=== PATIENT | female | born 1960 | race Caucasian/White ===

== ENCOUNTER 2023-09-15 10:53 | Emergency (ER) | payer OTHER ==
[~2023-09-15] VITALS: Ht 147.3 cm; Wt 35.4 kg
[~2023-09-15 10:53] MED LIST: ALPR1 PO; Arava10 MG PO; BUTALB-ACETAMI1 EACH; CYCL10 PO; FAMO40 PO; FENT25TP TOP; Norco 5-325 Ta1 EACH PO; ONDA4 PO; OXYACE5T PO; PROM25 PO; Percocet 10-321 EACH PO; Percocet 5-3251 EACH PO; SUCR1 PO; XELJANZ5 MG PO
[2023-09-15] MEDS ORDERED: Acetaminophen650 M1 PO (11:03)
[2023-09-15] MEDS ORDERED: HYDSUL200 PO (11:03)
[2023-09-15] MEDS ORDERED: BISA10S PR (11:03)
[2023-09-15] MEDS ORDERED: LOPE2C PO (11:04)
[2023-09-15] MEDS ORDERED: METO25ER PO (11:04)
[2023-09-15] MEDS ORDERED: Acetaminophen 325 MG TABLET PO ONE (12:00)
[2023-09-15] MEDS ORDERED: Cyclobenzaprine HCl 10 MG Tab PO ONE (12:00)
[2023-09-15] MEDS ORDERED: CYCL10 PO (14:06)
[2023-09-15 14:15] VITALS: BP 121/69
== END 2023-09-15 15:00 | disposition home or self-care (01) ==
LOC: ER 10:53
DX: M54.42 Lumbago with sciatica, left side (principal); R53.81 Other malaise; F17.200 Nicotine dependence, unspecified, uncomplicated; Z79.899 Other long term (current) drug therapy; Z88.6 Allergy status to analgesic agent; Z88.0 Allergy status to penicillin; Z91.018 Allergy to other foods; Z91.013 Allergy to seafood; Z88.8 Allergy status to other drugs, medicaments and biological substances
CPT/HCPCS: 29125; 72170; 73110; 99283-25; A9270; L3917